=== PATIENT | male | born 1985 | race Hispanic/Latino ===

== ENCOUNTER 2020-04-09 11:57 | Emergency (ER) | payer OTHER ==
--- NOTE | 2020-04-09 13:47 | Emergency Department Report ---
ED Laceration HPI - HPI Chief Complaint: Wound/Laceration Stated Complaint: LEFT LEG LAC Time Seen by Provider: 04/09/20 13:25 Occurred When: Today Location: Lower Extremity Severity: mild Tetanus Status: Up to Date Laceration Symptoms: Yes Pain, No Foreign Body Sensation, No Numbness, No Weakness Other History: Her 34-year-old male was out there using lysing a chainsaw and accidentally lacerated his left upper leg lower aspect anteriorly located. It was a linear laceration with minimal bleeding came to emergency department for further treatment and evaluation. ED Review of Systems ROS: Stated complaint: LEFT LEG LAC Other details as noted in HPI Comment: All other systems reviewed and negative ED Past Medical Hx - Past Medical History Previous Medical History?: No - Surgical History Past Surgical History?: No Laceration Physical Exam - Exam General: Vital signs noted. No distress. Alert and acting appropriately. Laceration Location: Upper Extremity Full Body Front + Back: 1 - Linear laceration Laceration Exam: Yes Normal Distal CMS, No Foreign Body, No Exposed Tendon, Vessel, or Nerve, No Tendon Injury - Procedure Description Procedures done: PRE-OP DIAGNOSIS: Left lower leg laceration. POST-OP DIAGNOSIS: Same. PROCEDURE: Laceration repair. Performing Physician/advanced practice provider: Gustabo Valle_. . PROCEDURE: A timeout protocol was performed prior to initiating the procedure. The area was prepared and draped in the usual, sterile manner. The site was anesthetized with 2% lidocaine without epinephrine. A linear incision, the left lower leg. 4-0 Prolene was placed in simple noted fashion x4 with no complication good wound approximation hemostasis was achieved and estimated blood loss was less than 2 cc. Wound was irrigated with normal saline and bleeding was minimal. Followup: The patient tolerated the procedure well without complications. Standard post-procedure care is explained and return precautions are given. Critical care attestation.: If time is entered above; I have spent that time in minutes in the direct care of this critically ill patient, excluding procedure time. ED Disposition Clinical Impression: Leg laceration Disposition: - TO HOME OR SELFCARE Is pt being admited?: No Does the pt Need Aspirin: No Condition: Stable Instructions: Laceration (ED), Suture Care (ED) Referrals: [facility] [Provider Group] - 3-5 Days
== END 2020-04-09 14:18 | disposition home or self-care (01) ==
LOC: ED 11:57
DX: S81.812A Laceration without foreign body, left lower leg, initial encounter (principal); X50.9XXA Other and unspecified overexertion or strenuous movements or postures, initial encounter; Y93.89 Activity, other specified; Y92.89 Other specified places as the place of occurrence of the external cause; Y99.8 Other external cause status
CPT/HCPCS: 99282